=== PATIENT | female | born 1990 | race Caucasian/White ===

== ENCOUNTER 2016-10-03 19:00 | Emergency (ER) | payer OTHER ==
[2016-10-03 19:15] VITALS: BP 95/56; PULSE 60; TEMP 98.1; BMI 23.3
--- NOTE | 2016-10-03 19:45 | PDOC ---
History of Present Illness - General Chief Complaint: Urinary Problem Stated Complaint: UTI Time Seen by Provider: 10/03/16 19:19 History Source: Patient Exam Limitations: No Limitations - History of Present Illness Initial Comments: 10/03/16 19:43 CHIEF COMPLAINT: Hematuria HISTORY OF PRESENT ILLNESS: This is an otherwise healthy 26-year-old female presents for evaluation of 2 days of dysuria with one day of hematuria. She denies flank pain, nausea/vomiting, fevers/chills, or any other symptoms. Vital signs on arrival are unremarkable. REVIEW OF SYSTEMS: GENERAL/CONSTITUTIONAL: No fever or chills. No weakness. No weight change. HEAD, EYES, EARS, NOSE AND THROAT: No change in vision. No ear pain or discharge. No sore throat. CARDIOVASCULAR: No chest pain or palpitations. RESPIRATORY: No cough, wheezing, or shortness of breath. GASTROINTESTINAL: No nausea, vomiting, diarrhea or constipation. GENITOURINARY: Dysuria, hematuria. MUSCULOSKELETAL: No joint or muscle swelling or pain. No neck or back pain. SKIN: No rash or easy bruising. NEUROLOGIC: No headache, vertigo, loss of consciousness, or loss of sensation. PSYCHIATRIC: No depression or anxiety. ENDOCRINE: No increased thirst. No abnormal weight change. HEMATOLOGIC/LYMPHATIC: No anemia, easy bleeding, or history of blood clots. ALLERGIC/IMMUNOLOGIC: No hives or skin allergy. No latex allergy. PHYSICAL EXAM: GENERAL: The patient is awake, alert, and fully oriented, in no acute distress. ENT: Pupils equal, round and reactive to light, extraocular movements intact, sclera anicteric, conjunctiva clear. Neck supple. LUNGS: Clear to auscultation bilaterally. Normal excursion. No respiratory distress or use of accessory muscles. CV: RRR, S1/S2, no MRG. Cap refill < 2 sec. ABDOMEN: Soft, non-distended, non-tender. No CVA tenderness. EXTREMITIES: Normal range of motion, no edema. NEUROLOGICAL: Normal speech, normal gait. CN II-XII grossly intact. PSYCH: Normal mood, normal affect. SKIN: Warm, dry, normal turgor, no rashes or lesions noted. Past History - Past Medical History Allergies/Adverse Reactions: Allergies Allergy/AdvReac Type Severity Reaction Status Date / Time No Known Allergies Allergy Verified 10/03/16 19:10 Home Medications: Ambulatory Orders Cephalexin Monohydrate [Keflex -] 500 mg PO BID #10 capsule 10/03/16 Phenazopyridine HCl [Pyridium] 200 mg PO TID #9 tablet 10/03/16 Other medical history: denies - Psycho/Social/Smoking Cessation Hx Suicidal Ideation: No Smoking History: Never smoked *Physical Exam - Vital Signs Last Vital Signs Temp Pulse Resp BP Pulse Ox 98.1 F 60 18 95/56 100 10/03/16 19:07 10/03/16 19:07 10/03/16 19:07 10/03/16 19:07 10/03/16 19:07 Medical Decision Making - Medical Decision Making 10/03/16 19:49 A/P: 26 year old female with UTI symptoms. -UA, culture, urine *DC/Admit/Observation/Transfer Diagnosis at time of Disposition: Urinary tract infection Qualifiers: Urinary tract infection type: acute cystitis Hematuria presence: with hematuria Qualified Code(s): N30.01 - Acute cystitis with hematuria - Discharge Dispostion Admit: No - Prescriptions Prescriptions: Cephalexin Monohydrate [Keflex -] 500 mg PO BID #10 capsule Phenazopyridine HCl [Pyridium] 200 mg PO TID #9 tablet - Referrals Referrals: Aura Suero [Primary Care Provider] - 3 days - Patient Instructions Printed Discharge Instructions: DI for Urinary Tract Infection (UTI) Additional Instructions: -Take Keflex (an antibiotic) and Pyridium (for bladder pain) as prescribed -The medication will turn your urine orange- this is normal -Follow up with your primary care doctor later this week -Return here for back pain, fevers/chills, nausea/vomiting, or any other concerning symptoms Print Language: UKRAINIAN
[2016-10-03 20:07] LABS: URINE APPEARANCE SLCLOUDY; URINE BILIRUBIN NEGATIVE (NEGATIVE); URINE COLOR LTYELLOW; URINE GLUCOSE (UA) NEGATIVE (NEGATIVE); URINE KETONE NEGATIVE (NEGATIVE); URINE NITRITE NEGATIVE (NEGATIVE); URINE UROBILINOGEN NEGATIVE E.U./dl (0.2-1.0)
[2016-10-03 20:11] LABS: URINE BLOOD 2+ (NEGATIVE); URINE LEUK ESTERASE 3+ (NEGATIVE); URINE PROTEIN 1+ (NEGATIVE)
[2016-10-03 20:15] LABS: URINE BACTERIA MANY /hpf (NONE SEEN); URINE MUCUS RARE; URINE RBC 50 /hpf (0-3); URINE WBC 240 /hpf (3-5)
[2016-10-03] MEDS ORDERED: PHENAZOPYRIDINE HCL 100 MG TABLET (FP) PO ONE (20:26)
[2016-10-03] MEDS ORDERED: CEPHALEXIN MONOHYDRATE 500 MG CAPSULE (UD) PO ONE (20:26)
[2016-10-03] MEDS ORDERED: PHENAZOPYRIDINE HCL 100 MG TABLET (FP) ONE (20:31)
[2016-10-03] MEDS ORDERED: CEPHALEXIN MONOHYDRATE 500 MG CAPSULE (UD) ONE (20:32)
== END 2016-10-03 20:46 | disposition home or self-care (01) ==
LOC: JERFT 19:00 → JER 19:00 → JERFT 20:46
DX: N30.01 Acute cystitis with hematuria (principal)
CPT/HCPCS: 81003; 81015; 84703; 87086; 87186; 99281-25

== ENCOUNTER 2019-02-18 15:54 | Emergency (ER) | payer OTHER ==
[2019-02-18 15:59] VITALS: BP 99/65; PULSE 72; TEMP 98; BMI 26.3
--- NOTE | 2019-02-18 15:59 | PDOC ---
Rapid Medical Evaluation Time Seen by Provider: 02/18/19 15:58 Medical Evaluation: Allergies Allergy/AdvReac Type Severity Reaction Status Date / Time No Known Allergies Allergy Verified 10/03/16 19:10 02/18/19 15:59 I have performed a brief in-person evaluation of this patient. The patient presents with a chief complaint of: early , pelvic pain Pertinent physical exam findings:stable and in NAD, non-focal I have ordered the following:labs The patient will proceed to the ED for further evaluation.
[2019-02-18 17:31] LABS: PH,URINE 6.5 (5.0-8.0); URINE APPEARANCE CLEAR; URINE BILIRUBIN NEGATIVE (NEGATIVE); URINE COLOR YELLOW; URINE GLUCOSE (UA) NEGATIVE (NEGATIVE); URINE KETONE TRACE (NEGATIVE); URINE LEUK ESTERASE NEGATIVE (NEGATIVE); URINE NITRITE NEGATIVE (NEGATIVE); URINE PROTEIN NEGATIVE (NEGATIVE)
[2019-02-18 17:35] LABS: BASO % 0.4 % (0-2.0); EOS % 0.2 % (0-4.5); HEMATOCRIT 39.7 % (32.4-45.2); HEMOGLOBIN 13.1 GM/dL (10.7-15.3); LYMPH % 30.8 % (8-40); MCH 29.8 pg (25.7-33.7); MCHC 33.1 g/dl (32.0-36.0); MEAN CELL VOLUME 90.1 fl (80-96); MEAN PLT VOLUME 9.8 fl (7.5-11.1); MONO % 4.5 % (3.8-10.2); NEUT % 64.1 % (42.8-82.8); PLATELET COUNT 232 K/MM3 (134-434); RDW 13.8 % (11.6-15.6); WHITE BLOOD COUNT 7.6 K/mm3 (4.0-10.0)
--- NOTE | 2019-02-18 17:49 | PDOC ---
History of Present Illness - General Chief Complaint: Pain Stated Complaint: 5 W PREG/ ABD PAIN Time Seen by Provider: 02/18/19 15:58 History Source: Patient Exam Limitations: No Limitations - History of Present Illness Initial Comments: 02/19/19 07:22 HPI: 28F LMP 01/04 at 5 weeks gestation presenting with 2 weeks of on/off abdominal cramping similar to those of her menses. Episodes last about 5 minutes and self resolve. Initially the pain occurred every day but became less frequent. Had one episode earlier today and 4 days prior. Denies f/c. Denies vaginal bleeding, itching, discharge; denies dysuria, frequency. Denies chest pain, sob. Monogamous, no hx STIs, no concerns for STIs. Past History - Past Medical History Allergies/Adverse Reactions: Allergies Allergy/AdvReac Type Severity Reaction Status Date / Time No Known Allergies Allergy Verified 02/18/19 15:59 Home Medications: Ambulatory Orders Cephalexin Monohydrate [Keflex -] 500 mg PO BID #10 capsule 10/03/16 Phenazopyridine HCl [Pyridium] 200 mg PO TID #9 tablet 10/03/16 COPD: No - Psycho Social/Smoking Cessation Hx Smoking History: Never smoked Review of Systems - Review of Systems Able to Perform ROS?: Yes Comments:: 02/19/19 07:22 ROS: CONSTITUTIONAL: Denies F / C HEENT: Denies headache, lightheadedness, dizziness, changes in vision / hearing RESP: Denies SOB CARD: Denies chest pain, palpitations GI: Denies N / V / D, abdominal pain, bloody stool, inability to tolerate PO : Denies dysuria, hematuria, frequency. Denies vaginal symptoms, discharge, bleeding. SKIN: Denies rashes NEURO: Denies numbness, tingling, weakness MSK: Denies back pain Is the patient limited Icelandic proficient: No *Physical Exam - Vital Signs Last Vital Signs Temp Pulse Resp BP Pulse Ox 98 F 72 18 99/65 99 02/18/19 15:57 02/18/19 15:57 02/18/19 15:57 02/18/19 15:57 02/18/19 15:57 - Physical Exam Comments: 02/19/19 07:22 PE: GEN: Well appearing, NAD, comfortable. AAOx3 HEENT: NC/AT. No facial asymmetry. Normal voice. Supple neck w/ FROM CV: S1/S2, RRR, no m/r/g LUNG: CTAB, no wheezes, crackles, rales, rhonchi GI: soft, ndnt, +BS, no guarding, no rebound. No masses PELVIC: No bleeding or atrophy on inspection. Cervical os visualized and closed with no active bleeding or tissue projection. No blood in vault. There is milky white physiologic discharge. Neg CMT on bimanual exam EXTREMITIES: No obvious deformities of all extremities SKIN: warm, dry, normal turgor PSYCH: normal mood and affect NEURO: Moving all extremities well ED Treatment Course - LABORATORY CBC & Chemistry Diagram: 02/18/19 16:53 - ADDITIONAL ORDERS Additional order review: Laboratory Results 02/18/19 02/18/19 02/18/19 16:53 16:53 16:53 Serum , Qual Cancelled Urine Color Yellow Urine Appearance Clear Urine pH 6.5 Ur Specific [place] 1.026 Urine Protein Negative Urine Glucose (UA) Negative Urine Ketones Trace H Urine Blood Negative Urine Nitrite Negative Urine Bilirubin Negative Urine Urobilinogen 1.0 Ur Leukocyte Esterase Negative Urine HCG, Qual Positive 02/18/19 16:53 RBC 4.40 MCV 90.1 MCHC 33.1 RDW 13.8 MPV 9.8 Neutrophils % 64.1 Lymphocytes % 30.8 Monocytes % 4.5 Eosinophils % 0.2 Basophils % 0.4 Medical Decision Making - Medical Decision Making 02/18/19 17:46 MDM: 28F LMP 01/04 5wk gestation c/o abdominal cramping for 2 weeks. r/o ectopic - cbc, cmp, hcg, ua, t&s - TVUS - dispo pending 02/18/19 labs reviewed - f/u TVUS read 02/18/19 02/19/19 19:10 TVUS report reviewed; single IUP DC home w/ MANUFACTURING TEST ENGINEER f/u, return precautions Discharge - Discharge Information Problems reviewed: Yes Clinical Impression/Diagnosis: Abdominal cramping affecting Condition: Stable Disposition: HOME - Admission No - Follow up/Referral Referrals: Britt Sarmiento [Primary Care Provider] - - Patient Discharge Instructions Patient Printed Discharge Instructions: DI for Abdominal Pain -- Early Additional Instructions: You were seen in the Emergency Department. A copy of your ultrasound report was provided to you. If you are not on vitamins, please start taking them. They can be purchased over the counter. Follow up with your MANUFACTURING TEST ENGINEER regarding this ED visit in the next 2-3 days. IMMEDIATELY RETURN TO THE NEAREST EMERGENCY DEPARTMENT IF YOU EXPERIENCE ANY OF THE FOLLOWING: - Worsening symptoms - Vaginal bleeding - chest pain, shortness of breath, loss of consciousness - anything that concerns you Print Language: CHILEAN - Post Discharge Activity Work/Back to School Note: Back to Work
--- NOTE | 2019-02-18 19:01 | PDOC ---
Documentation entered by Joaquina Davis SCRIBE, acting as scribe for Dawna Mueller MD. Dawna Mueller MD: This documentation has been prepared by the Ryan martinez Brenda, SCRIBE, under my direction and personally reviewed by me in its entirety. I confirm that the documentation accurately reflects all work, treatment, procedures, and medical decision making performed by me. Attending Attestation - Resident Resident Name: César Burr - ED Attending Attestation I have performed the following: I have examined & evaluated the patient, The case was reviewed & discussed with the resident, I agree w/resident's findings & plan, Exceptions are as noted - HPI HPI: 02/18/19 18:39 The patient is a 28 year old female (), 5 weeks , with a significant PMH of who presents to the emergency department with 2 weeks of on and off abdominal pain, which she notes feels similar to her menstrual cramps. Patient reports that episodes last roughy 5 minutes and self resolve. She states that she had an episode today and 4 days ago, however the pain has overall been getting less frequent. Last LMP was 01/04/19. The patient denies chest pain, shortness of breath, headache and dizziness. Denies fever, chills, nausea, vomiting, diarrhea and constipation. Denies hematuria. Allergies: NKA Social history: Denies history of smoking, alcohol use or illicit drug use. PCP: Britt Sarmiento - Physicial Exam PE: 02/18/19 19:[address] César Burr's physical exam. - Medical Decision Making 02/18/19 19:01 Pelvic ultrasound confirms single live IUP Beta-hCG 62,000 02/18/19 19:01 Blood type is O+ UA is negative for any infection Impression threatened AB plan follow-up with her [employer] ABATEMENT WORKER
== END 2019-02-18 19:14 | disposition home or self-care (01) ==
LOC: JER 15:54
DX: O26.891 Other specified pregnancy related conditions, first trimester (principal); R10.30 Lower abdominal pain, unspecified; Z3A.01 Less than 8 weeks gestation of pregnancy
CPT/HCPCS: 36415; 76817-TC; 81003; 84702; 84703; 85025; 86850; 86900; 86901; 87086; 99282-25

== ENCOUNTER 2019-03-13 18:00 | Emergency (ER) | payer OTHER ==
--- NOTE | 2019-03-13 18:30 | PDOC ---
Rapid Medical Evaluation Time Seen by Provider: 03/13/19 18:17 Medical Evaluation: Allergies Allergy/AdvReac Type Severity Reaction Status Date / Time No Known Allergies Allergy Verified 02/18/19 15:59 03/13/19 18:24 I have performed a brief in-person evaluation of this patient. The patient presents with a chief complaint of:currently 9 weeks weeks w/ confirmed IUP, here w/ n/v that has been present throughout . States her boss sent her to ED for clearance today. Not currently on antiemetic. No abd pain, vag bleed or dysuria Pertinent physical exam findings:stable, NAD I have ordered the following:nothing The patient will proceed to the ED for further evaluation. Discharge Disposition - Diagnosis Hyperemesis - Referrals - Patient Instructions - Post Discharge Activity
[2019-03-13 18:39] VITALS: BP 114/56; PULSE 88; TEMP 98.5; BMI 26.3
== END 2019-03-13 22:00 | disposition left against medical advice (07) ==
LOC: JER 18:00 → JERFT 18:00
DX: O26.891 Other specified pregnancy related conditions, first trimester (principal); O21.0 Mild hyperemesis gravidarum; Z3A.09 9 weeks gestation of pregnancy
CPT/HCPCS: 99281-25

== ENCOUNTER 2019-05-22 20:14 | Emergency (ER) | payer OTHER ==
[2019-05-22 20:33] VITALS: BP 104/47; PULSE 67; TEMP 97.8; BMI 26.3
--- NOTE | 2019-05-22 20:35 | PDOC ---
Rapid Medical Evaluation Time Seen by Provider: 05/22/19 20:30 Medical Evaluation: Allergies Allergy/AdvReac Type Severity Reaction Status Date / Time No Known Allergies Allergy Verified 03/29/19 20:44 05/22/19 20:30 I have performed a brief in-person evaluation of this patient. The patient presents with a chief complaint of: Currently 18 weeks and states door swung open and hit her in the abd today. No pain but has not felt fetus move. No vag bleed, n/v Pertinent physical exam findings:unremarkable I have ordered the following:US The patient will proceed to the ED for further evaluation.
--- NOTE | 2019-05-22 21:36 | PDOC ---
History of Present Illness - General Chief Complaint: Pain Stated Complaint: 19WK TX/INJURY Time Seen by Provider: 05/22/19 20:30 History Source: Patient Exam Limitations: No Limitations Past History - Past Medical History Allergies/Adverse Reactions: Allergies Allergy/AdvReac Type Severity Reaction Status Date / Time No Known Allergies Allergy Verified 05/22/19 20:33 Home Medications: Ambulatory Orders Cephalexin Monohydrate [Keflex -] 500 mg PO BID #10 capsule 10/03/16 Phenazopyridine HCl [Pyridium] 200 mg PO TID #9 tablet 10/03/16 COPD: No - Immunization History Immunization Up to Date: Yes - Psycho Social/Smoking Cessation Hx Smoking History: Never smoked Hx Alcohol Use: No Drug/Substance Use Hx: No *Physical Exam - Vital Signs Last Vital Signs Temp Pulse Resp BP Pulse Ox 97.8 F 67 18 104/47 L 99 05/22/19 20:30 05/22/19 20:30 05/22/19 20:30 05/22/19 20:30 05/22/19 20:30 - Physical Exam General Appearance: No: Apparent Distress Respiratory/Chest: positive: Lungs Clear, Normal Breath Sounds. negative: Respiratory Distress Cardiovascular: positive: Regular Rhythm, Regular Rate, S1, S2. negative: Murmur Gastrointestinal/Abdominal: positive: Other (gravid uterus). negative: Tender Neurologic: positive: Alert Medical Decision Making - Medical Decision Making 28 y/o F with no sig pmh , currently 18 weeks , states someone accidentally opened drawer which hit her abdomen. States was concerned as she couldn't feel the baby moving around but later did feel it while she was getting US done here. Has mild lower abdominal discomfort. Denies fever, sob, cp , n/v, vaginal bleeding. Pending results of TVUS to check 05/22/19 21:34 TVUS shows IUP at 20 weeks HR is 139 BPM Movement of fetus noted D/W Dr. Miner - would like FHR monitoring Spoke to OB, Dr. Jacobson, who states FHR monitoring not required for this Patient stable for dc 05/22/19 21:54 Discharge - Discharge Information Problems reviewed: Yes Clinical Impression/Diagnosis: Abdominal pain affecting Condition: Stable Disposition: HOME - Admission No - Additional Discharge Information Prescription Drug Monitoring Program (I-STOP) results: I-STOP not reviewed - Follow up/Referral Referrals: Britt Sarmiento [Primary Care Provider] - - Patient Discharge Instructions Additional Instructions: Thank you for choosing [facility]. It was a pleasure taking care of you. Your ultrasound here was normal Please continue follow-up with your TRANSCRIPTION Return to the Emergency Department if your symptoms worsen or persist, have severe abdominal pain, vaginal bleeding or other concerning symptoms. - Post Discharge Activity Work/Back to School Note: Back to Work
== END 2019-05-22 22:00 | disposition home or self-care (01) ==
LOC: JER 20:14
DX: O26.891 Other specified pregnancy related conditions, first trimester (principal); R10.2 Pelvic and perineal pain; Z3A.20 20 weeks gestation of pregnancy
CPT/HCPCS: 76815; 99284-25

== ENCOUNTER 2019-09-25 21:45 | Inpatient (IN) | payer OTHER ==
[2019-09-25] MEDS ORDERED: BUTORPHANOL TARTRATE 1 MG/ML VIAL ONE (22:55)
[2019-09-25] MEDS ORDERED: PROMETHAZINE HCL 25 MG/1 ML VIAL ONE (22:55)
--- NOTE | 2019-09-25 23:01 | PD.OB.PROG ---
Past Medical History - Primary Care Physician PCP:: Adán De Leon Documenting Provider Type: Laborist - Admission Chief Complaint: low abdominal pain. History of Present Illness: Second ,37.7 wks. Pain since AM, got worse. No AF, bleeding, dysuria. Some ctx on monitor. FH reactive. History Source: Patient, Caregiver Limitations to Obtaining History: No Limitations - Nursing Documentation Nursing Documentation Reviewed: Yes - Past Medical History CENTRIFUGAL SCREEN TENDER: Denies/None Cardio/Vascular: Denies/None Pulmonary: Denies/None Gastrointestinal: Denies/None Hepatobiliary: Denies/None Renal/: Denies/None ... Weeks Gestation by Dates: 37.4 ...EDC by Sono: 10/11/19 Heme/Onc: Denies/None Infectious Disease: Denies/None Psych: Denies/None Musculoskeletal: Denies/None Rheumatology: Denies/None ENT: Denies/None Endocrine: Denies/None Dermatology: Denies/None - Past Surgical History Past Surgical History: Yes: - Smoking History Smoking history: Never smoked - Alcohol/Substance Use Hx Alcohol Use: No Review of Systems - Review of Systems Constitutional: reports: No Symptoms Eyes: reports: No Symptoms HENT: reports: No Symptoms Neck: reports: No Symptoms Cardiovascular: reports: No Symptoms Respiratory: reports: No Symptoms Gastrointestinal: reports: No Symptoms Genitourinary: reports: No Symptoms Breasts: reports: No Symptoms Reported Musculoskeletal: reports: No Symptoms Integumentary: reports: No Symptoms Neurological: reports: No Symptoms Endocrine: reports: No Symptoms Hematology/Lymphatic: reports: No Symptoms Psychiatric: reports: No Symptoms Physical Exam - Obstetrical Constitutional: Yes: Well Nourished, No Distress, Calm Eyes: Yes: WNL, Conjunctiva Clear, EOM Intact HENT: Yes: WNL, Atraumatic, Normocephalic Neck: Yes: WNL, Supple, Trachea Midline Cardiovascular: Yes: WNL, Regular Rate and Rhythm Lungs: Clear to auscultation Breast(s): Yes: WNL - Abdominal Exam/OB Fundal Height: 38 Number of Fetuses: Single Presentation: Vertex Contractions: Yes Regularity: Irritability Intensity: Mild Monitor Mode: External Heart Rate (range): 140 Heart Rate Location: [facility] Category: I Accelerations: Uniform Decelerations: None - Vaginal Exam/OB Vaginal Exam Deferred: No Dilatation (cm): 0 Effacement (%): 0 Amniotic Membrane Status: Intact Nitrazine Test: Negative Presentation: Vertex/Position Station: -3 - Physical Exam Musculoskeletal: Yes: WNL Extremities: Yes: WNL Integumentary: Yes: WNL ...Motor Strength: WNL Psychiatric: Yes: WNL Problem List - Problems (1) with 37 weeks completed gestation Code(s): Z3A.37 - 37 WEEKS GESTATION OF (2) Abdominal pain affecting Code(s): O26.899 - OTH RELATED CONDITIONS, UNSPECIFIED TRIMESTER; R10.9 - UNSPECIFIED ABDOMINAL PAIN Assessment/Plan Stable, some discomfort, winnie. rlq. Etiology? Exam negative. Observe. Labs, incl. fibrinogen and FSP. Stadol 1mg, Phenergan [address] De Leon notified; in agreement.
[2019-09-25] MEDS ORDERED: PROMETHAZINE HCL 25 MG/1 ML VIAL IVPB ONE (23:30)
[2019-09-25] MEDS ORDERED: ELECTROLYTE-148 SOLN 1,000 ML IV ONE (23:30)
[2019-09-25] MEDS ORDERED: BUTORPHANOL TARTRATE 1 MG/ML VIAL IVPB ONE (23:30)
[2019-09-26 00:12] LABS: BASO % 0.3 % (0-2.0); EOS % 0.2 % (0-4.5); HEMATOCRIT 32.1 % (32.4-45.2); HEMOGLOBIN 10.7 GM/dL (10.7-15.3); LYMPH % 19.3 % (8-40); MCH 29.5 pg (25.7-33.7); MCHC 33.5 g/dl (32.0-36.0); MEAN PLT VOLUME 10.4 fl (7.5-11.1); MONO % 4.2 % (3.8-10.2); PLATELET COUNT 215 K/MM3 (134-434); RBC 3.65 M/mm3 (3.60-5.2)
[2019-09-26 00:22] LABS: INR 0.92 (0.83-1.09); PROTHROMBIN TIME (PATIENT) 10.9 SEC (9.7-13.0)
[2019-09-26 00:40] LABS: BLOOD UREA NITROGEN 10.7 mg/dL (7-18); CALCIUM 8.1 mg/dL (8.5-10.1); CREATININE 0.6 mg/dL (0.55-1.3)
[2019-09-26] MEDS ORDERED: ELECTROLYTE-148 SOLN 500 ML IV ONE ×2 (00:40→01:10)
[2019-09-26] MEDS ORDERED: CITRIC ACID/SODIUM CITRATE 30 ML UNIT-DOSE CUP PO ONE (00:40)
[2019-09-26] MEDS ORDERED: morphine SULFATE/PF 0.5 MG/ML (2cc Syringe - QUVA) ONE (00:54)
[2019-09-26] MEDS ORDERED: ceFAZolin SODIUM 1 GM VIAL ONE (01:15)
[2019-09-26] MEDS ORDERED: MIDAZOLAM HCL 2 MG/2 ML SINGLE DOSE VIAL ONE (01:21)
[2019-09-26] MEDS ORDERED: ONDANSETRON 4 MG/2 ML VIAL IVPUSH PRN (01:30)
[2019-09-26] MEDS ORDERED: OXYTOCIN 10 UNITS/ML VIAL ONE (01:34)
--- NOTE | 2019-09-26 02:01 | PN ---
Progress Note (short form) - Note Progress Note: Called to pt. who started bleeding. Pain still present, worse. Some late decels. Cat 2/3. Pelvic very painful Bleeding heavier. Cx unchanged. Imp: abruptio placentae. Plan: STAT c/section. Pt. Informed; understands and agrees. Dr. De Leon on his way. Problem List - Problems (1) with 37 weeks completed gestation Code(s): Z3A.37 - 37 WEEKS GESTATION OF (2) Abdominal pain affecting Code(s): O26.899 - OTH RELATED CONDITIONS, UNSPECIFIED TRIMESTER; R10.9 - UNSPECIFIED ABDOMINAL PAIN
[2019-09-26] MEDS ORDERED: diphenhydrAMINE HCL 25 MG CAPSULE (FP) PO PRN (02:04)
[2019-09-26] MEDS ORDERED: IBUPROFEN 800 MG/8 ML IJ IVPB PRN (02:04)
[2019-09-26] MEDS ORDERED: METHYLERGONOVINE MALEATE 0.2 MG/1 ML AMP IM PRN (02:04)
[2019-09-26] MEDS ORDERED: BENZOCAINE 28 GM HEMORRHOIDAL OINTMENT RC PRN (02:04)
[2019-09-26] MEDS ORDERED: WITCH HAZEL 50% (TUCKS) 40 PAD/JAR PAD TP PRN (02:04)
[2019-09-26] MEDS ORDERED: BENZOCAINE 20% 57 GM BOTTLE TP PRN (02:04)
[2019-09-26] MEDS ORDERED: oxyCODONE HCL 5 MG TABLET PO PRN ×2 (02:04)
[2019-09-26] MEDS ORDERED: OXYTOCIN 20 UNITS in 0.9% NS 20 UNIT/1,000 ML INFUS.BAG IV SCH (02:15)
[2019-09-26] MEDS ORDERED: DEXTROSE 5%-LACTATED RINGERS 1,000 ML IV SCH (02:15)
--- NOTE | 2019-09-26 02:18 | PN ---
Delivery - Delivery Section: Repeat Type of Anesthesia: Spinal EBL (cc): 450 (uterine rupture) Delivery, Single - Stages of Labor Placenta: Yes: Manual Removal, Normal Configuration - Condition of Mixer Wet Pour/Sales And Marketing Assistant Present: Yes Infant Gender: Male Position: Left, OA - 1 Minute Total Score: 9 5 Minutes Total Score: 9 Remarks - Remarks Remarks: Rupture uterus for the full length of hysterotomy. Baby's head in the peritoneal cavity. Emergency STAT c/section.
--- NOTE | 2019-09-26 02:31 | HP ---
Past Medical History - Admission History Source: Patient Limitations to Obtaining History: No Limitations - Past Medical History ...: 2 ...Para: 1 ...Living Children: 1 ...LMP: 01/04/19 ... Weeks Gestation by Dates: 37.4 ...EDC by Fátima: 10/11/19 - Past Surgical History Past Surgical History: Yes: Hx Myomectomy: No Hx Transabdominal Cerclage: No - Smoking History Smoking history: Never smoked - Alcohol/Substance Use Hx Alcohol Use: No - Social History Usual Living Arrangement: Yes: With Spouse Home Medications - Allergies Allergies/Adverse Reactions: Allergies Allergy/AdvReac Type Severity Reaction Status Date / Time No Known Allergies Allergy Verified 05/22/19 20:33 - Home Medications Home Medications: Ambulatory Orders Cephalexin Monohydrate [Keflex -] 500 mg PO BID #10 capsule 10/03/16 Phenazopyridine HCl [Pyridium] 200 mg PO TID #9 tablet 10/03/16 Physical Exam - Maternity - Labs Lab Results: CBC, BMP 09/25/19 23:30 09/25/19 23:30
--- NOTE | 2019-09-26 02:44 | PN ---
Progress Note (short form) - Note Progress Note: Pt. is 29 y old p1 EDC 10/10 previous c/Sx1 presented to triage C/O of lower abdominal pain , with FHR 120/ min Mod. variability , irregular CTX Vs irritability VE closed post , received stadol and IV hydration mfollowing that noticed vaginal bleeding and increase lower abdominal pain with recurence CTx Q 2 min with with sustained cont. CTx upon abdominal exam. due to vaginal bleeding with cont. recurrence CTX , with pelvic pain not reliefed by analgesic suspecious of abrupto exist and PT. informed the need for preceed with emergency C/S risk and benefit explained ..Dr. Acosta and dr. allen preceed with the C/S .
[2019-09-26 03:22] VITALS: BMI 29.0
[2019-09-26] MEDS ORDERED: OXYTOCIN 20 UNITS in 0.9% NS 20 UNIT/1,000 ML INFUS.BAG IV ONE (03:56)
[2019-09-26] MEDS: CEFAZOLIN 1 GM/D5W 1 GM/50 ML BAG IVPB SCH ×2 (09:41→18:05)
--- NOTE | 2019-09-26 12:21 | OP ---
DATE OF OPERATION: DATE OF DICTATION: 09/26/2019 PREOPERATIVE DIAGNOSES: 1. Intrauterine at 37 weeks 5 days. 2. Previous section. 3. Abdominal pain and bleeding, suspected abruption of placenta. POSTOPERATIVE DIAGNOSES: 1. Intrauterine at 37 weeks 5 days. 2. Previous section. 3. Abdominal pain and bleeding, suspected abruption of placenta. 4. Complete rupture of the uterus in the area of hysterotomy. SURGEON: Bryon Mcginnis MD ASSISTANTS: Elder Mansfield MD; Adán De Leon MD ANESTHESIOLOGIST: MANUEL Goldberg ANESTHESIA: Spinal. NEONATOLOGY: Present. PROCEDURE AND FINDINGS: Under excellent and rapid spinal block patient was placed in dorsal supine position and scrubbed and draped in the normal fashion. Incision was made using scalpel in line with previous well-healed scar and carried through subcutaneous tissue and the fascia which was opened transversely. Rectus muscle fascia was dissected off the rectus muscle. Rectus muscles were fused in the midline and small incision was done in the upper part. Large amount of fluid, slightly bloody, was noted. It became obvious that this was most likely amniotic fluid. Muscle and peritoneum were then divided in the midline en bloc and muscles were also released bilaterally to allow access. Baby's head was noted right under abdominal wall outside of the uterus. Baby's head was elevated and male fetus was delivered through the incision with some fundal pressure. Cord was clamped and specimen was obtained for blood gases. Baby was handed over to the deli clerk, cried and breathed spontaneously. Apgars were 9 and 9. Placenta was then removed manually and uterus was elevated above the surface of the abdomen. It became apparent that uterine rupture took place at the site of the previous scar. It was large to the extent that baby's head protruded through it spontaneously. Amniotic fluid was still in the abdomen and was suctioned. Uterine cavity was cleaned. Edges were grasped with "T" clamps and bladder flap was carefully incised. Bladder was taken off the lower edge of the incision. Care was taken to avoid any bladder injury. Fortunately the rupture did not extend to any other structures. Hysterotomy was then closed with single layer Biosyn 0 suture. Additional mattress Biosyn 0 suture was used in the middle of the incision to control mild bleeding and to reinforce the incision. Uterus was well contracted. Closure of the uterus was completed. Urine was clear in the Wilcox catheter bag. Abdomen was lavaged carefully and excess fluid was suctioned. Uterus was placed in the abdomen anatomically and hemostasis was rechecked. It was excellent. At that point instrument and sponge count was reported as correct. Abdomen was closed in layers. Peritoneum was closed with continuous running Biosyn 2-0 suture. Single Biosyn 2-0 suture in a mattress fashion was used to approximate and repair the incision on the rectus muscle. Fascia was closed with continuous running Vicryl 1 suture. Subcutaneous layer was very thin and required no sutures. Skin was approximated with continuous running, subcuticular V-Loc 4-0 suture and Steri-Strips. Urine was rechecked and was clear and abandoned. Blood loss was about 450 mL and it was fortunately low because of very limited bleeding in spite of unexpected pathology. A sterile dressing was then applied. Patient withstood the surgery as well as anesthesia without any problems. She was transferred to PACU comfortable and stable. BRYON MCGINNIS MD [id number]
[2019-09-26] MEDS: IBUPROFEN 600 MG TABLET (FP) PO PRN ×2 (13:37→21:06)
[2019-09-26] MEDS: SIMETHICONE 80 MG TAB.CHEW (FP) PO PRN ×2 (13:37→21:07)
[2019-09-26] MEDS ORDERED: ACETAMINOPHEN 1000 MG/100 ML VIAL (NON FORMULARY) IVPB ONE (18:02)
--- NOTE | 2019-09-26 19:50 | PN ---
Post Progress Note - Subjective Subjective: PPD#2 S/P doing well, has no complaints, tolerating regular diet, ambulating and voiding without difficulty PE: AAOX3 in NAD HEENT: NC/AT, supple. hest: CTA Abd;: Soft, NT, ND, +BS Wound: D/C/I Ext: negative speedy's BL VE: Normal Lochia A/P PPD#2 S/P doing well. Routine PP care Out of bed Will Dc home tomorrow if continue to be stable. F/U in [facility] in one week for wound check. Post Day: 2 Type of Delivery: Repeat C/S Vital Signs: Vital Signs Temperature 98.5 F 09/26/19 06:20 Pulse Rate 64 09/26/19 06:20 Respiratory Rate 18 09/26/19 13:00 Blood Pressure 122/54 L 09/26/19 06:20 O2 Sat by Pulse Oximetry (%) Breast Exam: Yes: Soft Uterus: Yes: Fundus Firm, Fundus below umbilicus Incision: Yes: Dressing dry and intact Abdomen/GI: Yes: Abdomen soft Lochia: Yes: Rubra Lochia, amount: Small Extremities: Yes: Calves non-tender - Labs Labs: CBC WBC 13.0 K/mm3 (4.0-10.0) H 09/25/19 23:30 RBC 3.65 M/mm3 (3.60-5.2) 09/25/19 23:30 Hgb 10.7 GM/dL (10.7-15.3) 09/25/19 23:30 Hct 32.1 % (32.4-45.2) L 09/25/19 23:30 MCV 88.0 fl (80-96) 09/25/19 23:30 MCH 29.5 pg (25.7-33.7) 09/25/19 23:30 MCHC 33.5 g/dl (32.0-36.0) 09/25/19 23:30 RDW 14.0 % (11.6-15.6) 09/25/19 23:30 Plt Count 215 K/MM3 (134-434) 09/25/19 23:30 MPV 10.4 fl (7.5-11.1) 09/25/19 23:30 Absolute Neuts (auto) 9.9 K/mm3 (1.5-8.0) H 09/25/19 23:30 Neutrophils % 76.0 % (42.8-82.8) 09/25/19 23:30 Lymphocytes % 19.3 % (8-40) D 09/25/19 23:30 Monocytes % 4.2 % (3.8-10.2) 09/25/19 23:30 Eosinophils % 0.2 % (0-4.5) 09/25/19 23:30 Basophils % 0.3 % (0-2.0) 09/25/19 23:30 Nucleated RBC % 0 % (0-0) 09/25/19 23:30
[2019-09-27] MEDS ORDERED: BISACODYL 10 MG SUPP.RECT PR PRN (02:04)
[2019-09-27] MEDS: IBUPROFEN 600 MG TABLET (FP) PO PRN ×3 (07:56→23:36)
[2019-09-27] MEDS: ACETAMINOPHEN 325 MG TABLET (FP) PO PRN ×3 (07:56→23:35)
[2019-09-27] MEDS: SIMETHICONE 80 MG TAB.CHEW (FP) PO PRN ×2 (07:56→15:30)
[2019-09-27 08:36] LABS: BASO % 0.1 % (0-2.0); EOS % 0.1 % (0-4.5); HEMATOCRIT 32.5 % (32.4-45.2); HEMOGLOBIN 10.6 GM/dL (10.7-15.3); LYMPH % 12.6 % (8-40); MCH 28.4 pg (25.7-33.7); MCHC 32.7 g/dl (32.0-36.0); MEAN CELL VOLUME 86.8 fl (80-96); MEAN PLT VOLUME 9.2 fl (7.5-11.1); MONO % 4.9 % (3.8-10.2); NEUT % 82.3 % (42.8-82.8); PLATELET COUNT 183 K/MM3 (134-434); RBC 3.75 M/mm3 (3.60-5.2); RDW 13.9 % (11.6-15.6); WHITE BLOOD COUNT 15.7 K/mm3 (4.0-10.0)
--- NOTE | 2019-09-27 11:55 | PN ---
Post Progress Note - Subjective Subjective: PPD#1 S/P doing well, has no complaints, tolerating regular diet, ambulating and voiding without difficulty PE: AAOX3 in NAD HEENT: NC/AT, supple. hest: CTA Abd;: Soft, NT, ND, +BS Wound: D/C/I, Ext: negative speedy's BL VE: Normal Lochia A/P PPD#1 S/P doing well. Routine PP care Out of bed Wound dressing removed Patient want to go home tomorrow, Will Dc home tomorrow if continue to be stable. F/U in [facility] in one week for wound check. Type of Delivery: Repeat C/S Type of Delivery: Repeat C/S Vital Signs: Vital Signs Temperature 97.8 F 09/27/19 09:00 Pulse Rate 82 09/27/19 09:00 Respiratory Rate 20 09/27/19 09:00 Blood Pressure 98/61 09/27/19 09:00 O2 Sat by Pulse Oximetry (%) Breast Exam: Yes: Soft Uterus: Yes: Fundus Firm, Fundus below umbilicus Incision: Yes: Jelena intact Abdomen/GI: Yes: Abdomen soft, Tolerating PO Lochia: Yes: Rubra Lochia, amount: Small Extremities: Yes: Calves non-tender Activity: Ambulating - Labs Labs: CBC WBC 15.7 K/mm3 (4.0-10.0) H 09/27/19 07:46 RBC 3.75 M/mm3 (3.60-5.2) 09/27/19 07:46 Hgb 10.6 GM/dL (10.7-15.3) L 09/27/19 07:46 Hct 32.5 % (32.4-45.2) 09/27/19 07:46 MCV 86.8 fl (80-96) 09/27/19 07:46 MCH 28.4 pg (25.7-33.7) 09/27/19 07:46 MCHC 32.7 g/dl (32.0-36.0) 09/27/19 07:46 RDW 13.9 % (11.6-15.6) 09/27/19 07:46 Plt Count 183 K/MM3 (134-434) 09/27/19 07:46 MPV 9.2 fl (7.5-11.1) D 09/27/19 07:46 Absolute Neuts (auto) 13.0 K/mm3 (1.5-8.0) H 09/27/19 07:46 Neutrophils % 82.3 % (42.8-82.8) 09/27/19 07:46 Lymphocytes % 12.6 % (8-40) D 09/27/19 07:46 Monocytes % 4.9 % (3.8-10.2) 09/27/19 07:46 Eosinophils % 0.1 % (0-4.5) 09/27/19 07:46 Basophils % 0.1 % (0-2.0) 09/27/19 07:46 Nucleated RBC % 0 % (0-0) 09/27/19 07:46
--- NOTE | 2019-09-27 12:00 | DS ---
Physical Examination Vital Signs: Vital Signs Temperature 97.8 F 09/27/19 09:00 Pulse Rate 82 09/27/19 09:00 Respiratory Rate 20 09/27/19 09:00 Blood Pressure 98/61 09/27/19 09:00 O2 Sat by Pulse Oximetry (%) Constitutional: Yes: Well Nourished Eyes: Yes: WNL HENT: Yes: WNL Neck: Yes: WNL Cardiovascular: Yes: WNL Respiratory: Yes: WNL Gastrointestinal: Yes: WNL ...Rectal Exam: Yes: WNL Renal/: Yes: WNL Breast(s): Yes: WNL Musculoskeletal: Yes: WNL Extremities: Yes: WNL Edema: No Peripheral Pulses WNL: Yes Integumentary: Yes: WNL Wound/Incision: Yes: Clean/Dry, Well Approximated Neurological: Yes: WNL ...Motor Strength: WNL Psychiatric: Yes: WNL Labs: CBC, BMP 09/27/19 07:46 09/25/19 23:30 Discharge Summary Problems reviewed: Yes Reason For Visit: LABOR ADMIT Current Active Problems with 37 weeks completed gestation (Acute) Hospital Course: PPD#2 S/P doing well, has no complaints, tolerating regular diet, ambulating and voiding without difficulty PE: AAOX3 in NAD HEENT: NC/AT, supple. hest: CTA Abd;: Soft, NT, ND, +BS Wound: D/C/I Ext: negative speedy's BL VE: Normal Lochia A/P PPD#2 S/P doing well. Routine PP care Out of bed Will Dc home tomorrow if continue to be stable. F/U in [facility] in one week for wound check. Type of Delivery: Repeat C/S - Instructions Diet, Activity, Other Instructions: Regular diet No driving for 6 weeks Disposition: HOME - Home Medications Comprehensive Discharge Medication List: Ambulatory Orders Cephalexin Monohydrate [Keflex -] 500 mg PO BID #10 capsule 10/03/16 Phenazopyridine HCl [Pyridium] 200 mg PO TID #9 tablet 10/03/16 Prescription Drug Monitoring Program (I-STOP) results: I-STOP reviewed and no issues identified (Dc home)
--- NOTE | 2019-09-27 12:03 | DS ---
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: Vital Signs Temperature 97.8 F 09/27/19 09:00 Pulse Rate 82 09/27/19 09:00 Respiratory Rate 20 09/27/19 09:00 Blood Pressure 98/61 09/27/19 09:00 O2 Sat by Pulse Oximetry (%) Constitutional: Yes: Well Nourished, No Distress, Calm Eyes: Yes: WNL HENT: Yes: WNL Neck: Yes: WNL Cardiovascular: Yes: WNL Respiratory: Yes: WNL Gastrointestinal: Yes: WNL ...Rectal Exam: Yes: WNL Renal/: Yes: WNL Pelvis: Yes: WNL External Genitalia: Yes: Normal Vaginal Exam: Yes: Normal Cervix: Yes: Normal Uterus: Yes: Normal ....Post : Yes: Uterus firm, Uterus non-tender, Slight lochia rubra Breast(s): Yes: WNL Musculoskeletal: Yes: WNL Extremities: Yes: WNL Edema: No Integumentary: Yes: WNL Wound/Incision: Yes: Clean/Dry, Well Approximated Neurological: Yes: WNL ...Motor Strength: WNL Psychiatric: Yes: WNL Labs: CBC, BMP 09/27/19 07:46 09/25/19 23:30 Delivery - Delivery Section: Repeat Type of Anesthesia: Spinal Episiotomy/Laceration: None EBL (cc): 450 (uterine rupture) Delivery, Single - Stages of Labor Date 1st Stage Initiatied: 09/25/19 Time 1st Stage Initiated: 19:00 Date of Delivery: 09/26/19 Time of Delivery: 01:14 Time Placenta Delivered: 01:15 Placenta: Yes: Manual Removal, Normal Configuration - Condition of Fulfillment Representative/Stone Engraver Present: Yes Name: Genevieve Oliva Gender: Male Weight: 3.203 kg Position: Left, OA Total Hours ROM (Hrs/Mins): 0/1 - 1 Minute Total Score: 9 5 Minutes Total Score: 9 Discharge Summary Problems reviewed: Yes Reason For Visit: LABOR ADMIT Current Active Problems with 37 weeks completed gestation (Acute) Hospital Course: PPD#2 S/P doing well, has no complaints, tolerating regular diet, ambulating and voiding without difficulty PE: AAOX3 in NAD HEENT: NC/AT, supple. hest: CTA Abd;: Soft, NT, ND, +BS Wound: D/C/I Ext: negative speedy's BL VE: Normal Lochia A/P PPD#2 S/P doing well. Routine PP care Out of bed Will Dc home tomorrow if continue to be stable. F/U in [facility] in one week for wound check. Type of Delivery: Repeat C/S Condition: Stable - Instructions Disposition: HOME - Home Medications Comprehensive Discharge Medication List: Ambulatory Orders Cephalexin Monohydrate [Keflex -] 500 mg PO BID #10 capsule 10/03/16 Phenazopyridine HCl [Pyridium] 200 mg PO TID #9 tablet 10/03/16 Prescription Drug Monitoring Program (I-STOP) results: I-STOP reviewed and no issues identified
--- NOTE | 2019-09-27 14:55 | PN ---
Progress Note (short form) - Note Progress Note: Post op day#1.S/p C Section under spinal anesthesia with duramorph une ventful.Patient stable and c/o some pain for which she is on medication.No any anesthesia related problem.Patient Dc from the anesthesia care.
[2019-09-28 12:08] VITALS: BP 127/81; PULSE 66; TEMP 98.1
[2019-09-28] MEDS ORDERED: SENNOSIDES/DOCUSATE COMBO (SENNA PLUS) TABLET (UD) PO PRN (22:00)
--- NOTE | 2019-09-30 17:51 | PATH ---
Surgical Pathology Report Patient Name: ASHLEY BRYAN Med. Rec. 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 TRIVASCULAR CORD. MEMBRANES WITH NO DIAGNOSTIC ABNORMALITIES. Electronically Signed Tyra Song M.D. Gross Description The specimen is received fresh labeled placenta and is a 528 gram, 18.5 x 16.0 x 2.8 cm. placenta with attached membranes and umbilical cord. The attached membranes are clark, translucent with focal opacities and insert marginally. The umbilical cord measures 25 cm. in length and averages 1 cm. in diameter. The cord inserts eccentrically, 3.5 cm. to the nearest margin. No true knots or strictures are identified. Cut surface of the umbilical cord reveals 3 vessels. The surface is reyes-blue with minimal fibrin deposition and appropriate caliber vessels. The maternal surface is red-brown with focal defects. Sectioning reveals red-brown, spongy parenchyma. No lesions are identified. Senior Interactive Developer sections are submitted in three cassettes as follows: 1- membrane rolls and umbilical cord; 2-3- full thickness sections of placenta. /09/26/2019 saudi/09/26/2019
== END 2019-09-28 14:50 | disposition home or self-care (01) | DRG 540 ==
LOC: JDEL 21:45 → JLDR 09-26 00:20 → J3W 09-26 04:00
PROVIDERS: ADMIT Family Medicine; ATTEND Family Medicine
PROC: 10D00Z1 Extraction of Products of Conception, Low, Open Approach (ICD-10-PCS; principal; 2019-09-26)
PROC: 0UQ90ZZ Repair Uterus, Open Approach (ICD-10-PCS; 2019-09-26)
DX: O67.9 Intrapartum hemorrhage, unspecified (principal); O65.5 Obstructed labor due to abnormality of maternal pelvic organs; O34.211 Maternal care for low transverse scar from previous cesarean delivery; N85.8 Other specified noninflammatory disorders of uterus; Z3A.37 37 weeks gestation of pregnancy; Z37.0 Single live birth
CPT/HCPCS: 36415; 80048; 82962; 85025; 85610; 85730; 86780; 86850; 86900; 86901; 88307-TC; U0003